=== PATIENT | female | born 1950 | race Caucasian/White ===

== ENCOUNTER → 2016-08-06 | Outpatient (CLI) | payer MEDICARE, OTHER ==
--- NOTE | 2016-08-06 10:27 | MM ---
Reason for exam: history of breast cancer, mastectomy. Last mammogram was performed 1 year and 4 months ago. History: Patient is postmenopausal, has history of breast cancer at age 58, and had first child at age 30. Family history of breast cancer in aunt. Right Breast Aspiration of the right breast, February 24, 2013. Reduction of the right breast, February 2011. Mastectomy of the left breast, March 19, 2009. Malignant US left CoreBiopsy of both breasts, February 18, 2009. Malignant US left CoreBiopsy of both breasts, February 18, 2009. Benign stereotactic core biopsy of the left breast, July 07, 2001. Core biopsy of the left breast. Took hormonal contraceptives for 8 years. Took estrogen for 1 year. Took progesterone for 1 year. Took antineoplastic for 5 years beginning at age 58. Physical Findings: Nurse did not find any significant physical abnormalities on exam. MG 3D Diag Mammo W/Cad RT CC and MLO view(s) were taken of the right breast. Prior study comparison: April 02, 2015, right breast MG 3d diag mammo w/cad RT. March 13, 2014, right breast MG diagnostic mammo RT w CAD. There are scattered fibroglandular densities. No suspicious calcifications or masses are seen. These results were verbally communicated with the patient and result sheet given to the patient on 08/06/16. ASSESSMENT: Negative, BI-RAD 1 RECOMMENDATION: Follow-up diagnostic mammogram of the right breast in 1 year.
== END | disposition home or self-care (01) ==
LOC: RADMAMWWP 09:34
PROVIDERS: ATTEND Internal Medicine Hematology & Oncology
DX: C50.412 Malignant neoplasm of upper-outer quadrant of left female breast (principal); C79.51 Secondary malignant neoplasm of bone; D70.2 Other drug-induced agranulocytosis; E87.6 Hypokalemia
CPT/HCPCS: G0206; G0279

== ENCOUNTER → 2018-03-25 | Outpatient (CLI) | payer MEDICARE, OTHER ==
--- NOTE | 2018-03-25 13:43 | MM ---
Reason for exam: additional evaluation requested from prior study. Last mammogram was performed 1 year and 8 months ago. History: Patient is postmenopausal, has history of other cancer at age 65, has history of breast cancer at age 58, and had first child at age 30. Family history of breast cancer in aunt. Right Breast Aspiration of the right breast, February 24, 2013. Reduction of the right breast, February 2011. Mastectomy of the left breast, March 19, 2009. Malignant US left CoreBiopsy of both breasts, February 18, 2009. Malignant US left CoreBiopsy of both breasts, February 18, 2009. Benign stereotactic core biopsy of the left breast, July 07, 2001. Core biopsy of the left breast. Took hormonal contraceptives for 8 years. Took estrogen for 1 year. Took progesterone for 1 year. Took antineoplastic for 5 years beginning at age 58. Physical Findings: Nurse did not find any significant physical abnormalities on exam. MG 3D Diag Mammo W/Cad RT CC and MLO view(s) were taken of the right breast. Prior study comparison: August 06, 2016, right breast MG 3d diag mammo w/cad RT. April 02, 2015, right breast MG 3d diag mammo w/cad RT. There are scattered fibroglandular densities. Benign calcifications in the right breast. No suspicious abnormality. Right biopsy marker. No significant new findings when compared with previous films. These results were verbally communicated with the patient and result sheet given to the patient on 03/25/18. ASSESSMENT: Benign, BI-RAD 2 RECOMMENDATION: Follow-up diagnostic mammogram of the right breast in 1 year.
== END | disposition home or self-care (01) ==
LOC: RADMAMWWP 12:36
PROVIDERS: ATTEND Internal Medicine Hematology & Oncology
DX: C50.412 Malignant neoplasm of upper-outer quadrant of left female breast (principal); C79.51 Secondary malignant neoplasm of bone; D70.2 Other drug-induced agranulocytosis; E87.6 Hypokalemia
CPT/HCPCS: 77065; G0279; 77061

== ENCOUNTER → 2019-05-26 | Outpatient (CLI) | payer MEDICARE, OTHER ==
--- NOTE | 2019-05-29 08:39 | MM ---
Reason for exam: additional evaluation requested from prior study. Last mammogram was performed 1 year and 2 months ago. History: Patient is postmenopausal, has history of other cancer at age 65, has history of breast cancer at age 58, and had first child at age 30. Family history of breast cancer in aunt. Right Breast Aspiration of the right breast, February 24, 2013. Reduction of the right breast, February 2011. Mastectomy of the left breast, March 19, 2009. Malignant US left CoreBiopsy of both breasts, February 18, 2009. Malignant US left CoreBiopsy of both breasts, February 18, 2009. Benign stereotactic core biopsy of the left breast, July 07, 2001. Core biopsy of the left breast. Took hormonal contraceptives for 8 years. Took estrogen for 1 year. Took progesterone for 1 year. Took antineoplastic for 5 years beginning at age 58. Physical Findings: Nurse did not find any significant physical abnormalities on exam. MG 3D Diag Mammo W/Cad RT CC and MLO view(s) were taken of the right breast. Prior study comparison: March 25, 2018, right breast MG 3d diag mammo w/cad RT. August 06, 2016, right breast MG 3d diag mammo w/cad RT. There are scattered fibroglandular densities. Stable benign calcifications. No significant new findings when compared with previous films. These results were verbally communicated with the patient and result sheet given to the patient on 05/26/19. ASSESSMENT: Benign, BI-RAD 2 RECOMMENDATION: Routine screening mammogram of both breasts in 1 year.
== END | disposition home or self-care (01) ==
LOC: RADMAMWWP 15:04
PROVIDERS: ATTEND Family Medicine
DX: C50.919 Malignant neoplasm of unspecified site of unspecified female breast (principal); Z88.1 Allergy status to other antibiotic agents
CPT/HCPCS: 77065; G0279; 77061